=== PATIENT | female | born 1975 | race Caucasian/White ===

== ENCOUNTER → 2016-12-13 | Outpatient (CLI) | payer OTHER ==
--- NOTE | 2016-12-13 10:58 | DI ---
MRI LOW EXTREMITY JNT W/O CN,12/13/2016 9:50 AM: Clinical History: Knee pain Previous Exam: None at this facility. Findings: Multiplanar MR images are obtained through the left knee without contrast. Bony alignment is anatomic. No fractures are seen. There is some thinning of the articular cartilage tricompartmentally without subchondral cyst formati on. There is an oblique tear involving the body of the medial meniscus exiting on the undersurface. The lateral meniscus is intact. The anterior and posterior cruciate ligaments are intact. Medial and lateral collateral ligaments are also intact. There is no evidence of knee joint effusion. The quadriceps and patellar tendons are intact. The major vascular flow voids are unremarkable. There is no evidence of Connolly's cyst. Impression: Oblique tear of the body of the medial meniscus exiting on the undersurface. 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
== END ==
LOC: MRI 09:47
PROVIDERS: ATTEND Orthopaedic Surgery
DX: M25.562 Pain in left knee (principal); S83.242A Other tear of medial meniscus, current injury, left knee, initial encounter; M94.262 Chondromalacia, left knee
CPT/HCPCS: 73721

== ENCOUNTER 2017-12-15 14:25 | Inpatient (IN) ==
[2017-12-15] MEDS ORDERED: MORPHINE SULFATE 2 MG/1 ML IVP ONE (14:34)
[2017-12-15] MEDS ORDERED: Sodium Chloride 0.9% 1,000 ML PRIMARY IV ONE (14:34)
[2017-12-15] MEDS ORDERED: LORazepam 2 MG/1 ML VIAL IVP ONE (14:42)
--- NOTE | 2017-12-15 14:42 | PDOC ---
Abdomen/Flank HPI - General Chief Complaint: Abdomen Pain Stated Complaint: RIGHT SIDE PAIN STARTING SATURDAY NIGHT Date Seen by Provider: 12/15/17 Time Seen by Provider: 14:33 Source: POSITIVE: Patient, Spouse Exam Limitations: POSITIVE: No limitations Nurse's Notes Reviewed & Considered: Yes - History of Present Illness Initial Comments: This is a well-developed, well nourished, obese, very pleasant, 42-year-old female, complaining of right sided abdominal pain and right-sided chest pain. Patient with a sudden onset of right-sided chest pain that's been ongoing for 3 days. Pain has been escalating and radiates from her right chest into her right shoulder and right upper quadrant of her abdomen. She has had nausea and vomiting with 2-3 episodes of emesis. She has shortness of breath and is unable to take a deep breath. Her symptoms are escalating. She denies any headache, no sore throat, no diarrhea, no hematuria or dysuria, no rashes, no myalgias or arthralgias. Body Location Affected: REPORTS: Chest, Abdomen Timing: REPORTS: Abrupt Duration: >24 hours Severity: Severe Quality: REPORTS: "Pain" Abdominal Pain Onset Location: REPORTS: RUQ Abdominal Pain Radiation: REPORTS: RUQ, Shoulder, Chest, Back Context: REPORTS: None Modifying Factors: improves with: Nothing Associated Symptoms: REPORTS: Back pain, Nausea, Vomiting, Other (Shortness of breath) Similar Symptoms Previously: No Recent Care Received: REPORTS: Surgery (Gastric sleeve surgery 2 months ago.) Any Prior Injuries Related to Current Complaint?: No - Patient Home Medications Home Medications: Home Medications Ibuprofen 3 cap PO PRN cap 11/22/16 hydrocodone 7.5 mg-acetaminophen 325 mg tablet 1 tab PO BID PRN #30 tab meloxicam 7.5 mg tablet 7.5 mg PO BID PRN #60 tab 02/22/17 Norgestrel-Ethinyl Estradiol [Elinest-28 Tablet] 1 ea PO DAILY 12/15/17 - Patient Allergies Allergies/Adverse Reactions: Allergies 3 Allergy/AdvReac Type Severity Reaction Status Date / Time No Known Allergies Allergy Verified 12/15/17 14:42 Past Medical History - heen HEENT History: Denies History Cardiovascular History: Denies History Respiratory History: Denies History Gastrointestinal History: Denies History Genitourinary History: Denies History Endocrine History: Denies History Musculoskeletal History: Denies History Prosthesis or Implant: No Neurological History: Denies History Blood Disorders: Denies History Psychiatric History: Denies History History of Sexually Transmitted Diseases: No Cancer History: Denies History History of MDRO: Yes History of Other Communicable Diseases: No Alcohol Use: Occasionally In the Past 12 Months, Have Used or Abuse Any Substance: None Previous Surgical History: Yes Type / Date of Surgery: . cholecystectomy Anesthesia Reactions: No Malignant Hyperthermia: No Significant Family History: No pertinent family hx ROS - Limitations ROS Limitations: No Limitations Constitution: REPORTS: Diaphoresis Cardiovascular: REPORTS: Chest Pain Respiratory: REPORTS: Hurts To Breathe, Shortness Of Breath Neurological: REPORTS: Denies Neuro Symptoms Gastrointestinal: REPORTS: Abdominal Pain, Nausea, Vomitting, Constipation Endocrine: REPORTS: Denies Symptoms Musculoskeletal: REPORTS: Back Pain Genitourinary: REPORTS: Denies Symptoms Eyes: REPORTS: Denies Symptoms ENT: REPORTS: Denies Symptoms Skin: REPORTS: Denies Skin Symptoms Lympathic: REPORTS: Denies Lympathic Symptoms Immunologic: POSITIVE: Denies Symptoms Psychiatric: POSITIVE: Anxiety Abdominal/Flank Pain PE - General Appearance General Appearance: POSITIVE: Alert, Cooperative, No Evidence of Trauma, Severe Distress - HEENT HEENT: POSITIVE: Head Inspection Nml, Eyes Inspection Nml, Ears Inspection Nml, Nose Inspection Nml, Oral/Dental Inspect. Nml, Pharynx Inspect. Nml, PERRL, EOMI - Neck Neck: POSITIVE: Normal Inspection, No Apparent Injury - Respiratory Respiratory: POSITIVE: No Respiratory Distress, Breath Sounds Normal, Other ( Chest is tender to palpation over the right lateral ribs) - Cardiovascular Cardiovascular: POSITIVE: Regular Rate and Rhythm, Heart Sounds Normal, Strong Pulses Peripheral Pulses: Radial (R): 4+ - Chest Chest: POSITIVE: Non Tender - Abdomen Abdomen: Soft: (All Quadrants), Normal Bowel Sounds: (All Quadrants), Denies Tenderness: (LLQ), (RLQ), (LUQ), No Splenomegaly: (All Quadrants), No Hepatomegaly: (All Quadrants), No Guarding: (All Quadrants), No Rebound: (All Quadrants), No Palpable Pulse: (All Quadrants), No Palpabale Mass: (All Quadrants), No Distention: (All Quadrants), No Rigidity: (All Quadrants), Tenderness Noted: (RUQ) - Back Back: POSITIVE: CVA Tenderness (R) - Skin Skin: POSITIVE: Intact, Normal For Race, Warm, Dry, No Rash - Extremities Extremity: Non-Tender: (All Extremities), Normal ROM: (All Extremities), Normal Inspection: (All Extremities), Pelvis Stable: (All Extremities) - Neurological Neurological: POSITIVE: Affect Apporpriate, Oriented X3, Motor Normal, Sensation Normal - Psychological Psychiatric: POSITIVE: Mood Appropriate, Anxious Abdomen Progress - Results Reviewed by me Xrays/CTs/US Reviewed by me: Yes Discussed with Radiologist: Yes Lab Results Reviewed by Me: Yes CBC and BMP: 12/15/17 14:50 12/15/17 14:50 EKG Interpreted/Reviewed By Me:: Yes (sinus rhythm without evidence of ST-T changes) EKG Interpretation:: POSITIVE: Normal Sinus Rhythm, Normal Rate, Normal Intervals, Normal [place], Normal QRS, Normal ST/T - Patient's Progress Pain Medication Addressed: POSITIVE: Yes Re-examine Time: 17:09 Status: POSITIVE: Improved - Consult Consult (If Yes, Name of Consulting MD & Time Called): Yes (Dr. Viera 1710hrs.) Consulting MD will see pt:: POSITIVE: [facility] [place] Admit Counseled: POSITIVE: Patient, Family, RE: Lab Results, RE: Radiology Results, RE : DX, RE: Need for F/U - CP/AMI Quality Measure Initiative: CP/AMI: POSITIVE: EKG Patient Care Time - Estimated PCT Patient Care Time (In Minutes): 45 Vital Signs - VS Reviewed Vital Signs Reviewed: Yes Discharge Clinical Impression: Pneumonia Discharge Disposition: Admit to Inpatient Condition: Stable Patient Instructions Given at Discharge: Pneumonia (ED) Follow Up With: NONE,NONE [NON-STAFF] - Date Decision to Admit to Inpatient: 12/15/17 Time Decision to Admit to Inpatient: 17:18
--- NOTE | 2017-12-15 14:47 | EKG ---
[address] [address] Measurements Intervals [place] Rate: 77 P: 64 VA: 153 QRS: 59 QRSD: 99 T: 34 QT: 373 QTc: 404 Interpretive Statements SINUS RHYTHM No previous ECG available for comparison Electronically Signed On 12-16-17 08:22:41 MDT by Dwight Munson MD [email or web address]
[2017-12-15 15:03] LABS: BASOPHILS # (AUTO) 0.03 10*3/UL; BASOPHILS % (AUTO) 0.3 % (0-1); EOSINOPHILS % (AUTO) 0.9 % (0-8); Hematocrit [HCT] 41.2 % (37.0-47.0); LYMPHOCYTES # (AUTO) 2.65 10*3/uL; MEAN CORPUSCULAR HEMOGLOBIN 29.4 PG (27-31); MEAN CORPUSCULAR VOLUME 86.4 FL (81-99); MEAN PLATELET VOLUME 10.6 FL (7.4-12.2); MONOCYTES % (AUTO) 8.1 % (5-15); NEUTROPHILS # (AUTO) 7.48 10*3/UL; NEUTROPHILS % (AUTO) 66.8 % (50-80); PLATELET MORPHOLOGY COMMENT NORMAL MORPHOLOGY (NORM); RBC MORPHOLOGY COMMENT NORMAL MORPHOLOGY (NORM); RED BLOOD COUNT 4.77 10^6/uL (4.20-5.40); WBC MORPHOLOGY COMMENT NORMAL MORPHOLOGY (NORM)
[2017-12-15 15:18] LABS: BLOOD UREA NITROGEN 10 mg/dL (7-22); BUN/CREATININE RATIO 16.66 (6-20)
[2017-12-15] MEDS ORDERED: MORPHINE SULFATE 4 MG/1 ML IVP ONE (16:41)
--- NOTE | 2017-12-15 17:01 | DI ---
EXAM: CT Angiography Chest With Intravenous Contrast CLINICAL HISTORY: ITS.REASON cp/sob Physician Notes: Tech Comments: TECHNIQUE: Axial computed tomographic angiography images of the chest with intravenous contrast using pulmonary embolism protocol. MIP reconstructed images were created and reviewed. COMPARISON: No relevant prior studies available. FINDINGS: Exam is limited due to obese habitus causing excessive image noise. There is no dissection or other acute aortic syndrome. There is no visualized pulmonary embolism. There is extensive collapse of the right lower lobe with a component of consolidation as well. Suspicion for pneumonia. Recommend clinical correlation. There is an adjacent small pleural effusion. This is dependent without clear loculated component to indicate empyema. There is mild volume loss at the left base. IMPRESSION: Right lower lobe consolidation and atelectasis. Suspect pneumonia. Small right pleural effusion. No clear PE on technically limited exam.
[2017-12-15] MEDS ORDERED: cefTRIAXone Inj 2 GM in Sodium Chloride 0.9% 100 ML IV ONE (17:03)
--- NOTE | 2017-12-15 17:05 | DI ---
EXAM: CT Abdomen and Pelvis With Intravenous Contrast CLINICAL HISTORY: ITS.REASON RUQ pain Physician Notes: Tech Comments: TECHNIQUE: Axial computed tomography images of the abdomen and pelvis with intravenous contrast. COMPARISON: No relevant prior studies available. FINDINGS: Technically limited due to obese habitus. Status post cholecystectomy. No biliary dilation. Hepatomegaly. No liver mass is identified. There is a 2 mm calculus to the lower pole of the left kidney. No ureteral stone or hydronephrosis. Patient is status post gastric sleeve procedure. No perforation. Scattered small bowel air-fluid levels could reflect mild ileus or enteritis. No discrete transition point to indicate mechanical obstruction. Unremarkable appendix. No abdominal aortic aneurysm. Grossly unremarkable pelvic organs. Tiny fatty umbilical hernia. L5 spondylolysis with grade 1 anterolisthesis. No acute fracture. IMPRESSION: Gastric sleeve. No perforation. Scattered small bowel air-fluid levels could reflect mild ileus or enteritis. Cholecystectomy. No biliary dilation. Nonobstructing left renal calculus. L5 spondylolysis with grade 1 anterolisthesis.
[2017-12-15] MEDS ORDERED: ENOXAPARIN SODIUM 100 MG/1 ML SYRINGE SUBCUT ONE (17:14)
[2017-12-15] MEDS ORDERED: Sodium Chloride 0.9% 250 ML IV ONE (17:23)
[2017-12-15] MEDS ORDERED: LIDOCAINE W/ SODIUM BICARB 0.5 ML SYR SUBD PRN (18:15)
[2017-12-15] MEDS ORDERED: HYDROcodone-APAP 7.5 MG-325 MG TABLET PO PRN (18:15)
[2017-12-15] MEDS ORDERED: ALBUTEROL SULFATE 2.5 MG/3 ML NEB PRN (18:15)
[2017-12-15] MEDS ORDERED: ONDANSETRON 4 MG/2 ML VIAL IVP PRN (18:15)
[2017-12-15 19:14] LABS: BACTERIA,URINE MANY; BILIRUBIN,URINE SMALL (NEG); CLARITY,URINE Slightly Cloudy (CLEAR); COLOR,URINE ORANGE (Y); GLUCOSE, URINE (UA) NEGATIVE (NEG); OCCULT BLOOD,URINE Trace-intact (NEG); PH,URINE 5.5 (5.0-8.5); PROTEIN,URINE NEGATIVE (NEG); SQUAMOUS EPITHELIAL CELL,UR RARE; URINE SAMPLE TYPE CLEAN CATCH URINE
[2017-12-15] MEDS: MORPHINE SULFATE 2 MG/1 ML IVP PRN (20:13)
--- NOTE | 2017-12-15 21:08 | PDOC ---
HPI - History of Present Illness History of Present Illness: This very nice 42-year-old female status post a gastric sleeve for the last 2 or 3 days, been complaining of right sided flank pain she had some few Percocets left over from her gastric surgery she had to take one to sleep the other night and decided to come to the ER after the pain continued to get worse in the ER she was found to have a right lower lobe pneumonia on CT scan also had some shortness of breath and not able take deep breaths on CT scan it was not clear if she had a PE or not she did have an elevated d-dimer she did receive a dose of Lovenox and tomorrow we will review her CT scan with the radiologist closer she feels much better now after the antibiotics and IV fluids and pain meds Past Medical History Medical History: Morbid obesity Surgical History: Gastric sleeve Tobacco Use: Former Smoker In the Past 12 Months, Have Used or Abuse Any of the Following Substance: None Medication / Allergies Home Medications: Home Medications 3 Medication Instructions Recorded Confirmed Type Ibuprofen 3 cap PO PRN cap 11/22/16 12/15/17 History hydrocodone 7.5 mg-acetaminophen 1 tab PO BID PRN #30 tab 01/25/17 12/15/17 Rx 325 mg tablet meloxicam 7.5 mg tablet 7.5 mg PO BID PRN #60 tab 02/22/17 Rx Norgestrel-Ethinyl Estradiol 1 ea PO DAILY 12/15/17 12/15/17 History [Elinest-28 Tablet] Allergies/Adverse Reactions: Allergies 3 Allergy/AdvReac Type Severity Reaction Status Date / Time No Known Allergies Allergy Verified 12/15/17 14:42 Review of Systems - Review of Systems All Systems: Reviewed & No Additional Complaints Except as Stated - Respiratory Respiratory: REPORTS: Cough, Pleuritic Pain. DENIES: Hemoptysis, Wheezing - Cardiovascular Cardiovascular: DENIES: Negative System Review, Chest Pain, Edema, Syncope, Palpitations, Orthopnea, Paroxysmal Nocturnal Dyspnea, Other, See HPI - Gastrointestinal Gastrointestinal / Abdominal: DENIES: Negative System Review, Nausea, Vomiting, Diarrhea, Constipation, Abdominal Pain, Bloody Stool, Poor Appetite, Heartburn, Regurgitation, Bloating, Lactose Intolerance, Melena, Bright Red Blood per Rectum, Other, See HPI Exam - Vitals Vital Signs: Vital Signs Temperature 98.1 F Temperature Source Temporal Artery Scan Pulse Rate [Pulse Oximeter] 82 Pulse Rate 80 Respiratory Rate 22 Blood Pressure [Left Arm] 155/82 Blood Pressure 144/67 Pulse Ox 94 Oxygen Delivery Method Room Air Height 5 ft 7 in Weight 348 lb 9.6 oz - General General Appearance: No Acute Distress, Cooperative - Eye Eye Exam: POSITIVE: Normal Appearance, PERRL, EOMI, No Scleral Icterus - Respiratory Respiratory Exam: POSITIVE: Decreased Breath Sounds. NEGATIVE: Rales, Rhonci, Crackles - Cardiovascular Cardiovascular Exam: POSITIVE: RRR, No Murmur, No Clicks, No Gallops, No Rubs, PMI Non-Displaced - GI/Abdominal GI/Abdominal Exam: POSITIVE: Normal Bowel Sounds, Non Tender, Non Distended, Soft, No Masses, No Hepatomegaly, No Splenomegaly, No Organomegaly - Rectal Rectal Exam: POSITIVE: Deferred - External Exam: POSITIVE: Deferred Exam: POSITIVE: Deferred - Extremities Extremities Exam: POSITIVE: No Clubbing Present, No Edema Present, No Cyanosis Present - Neurological Neurological Exam: POSITIVE: Alert, Oriented x 3, Reflexes Normal, Normal Gait, CN II-XII Intact, No Facial Droop, Speech Intact / Clear, Moves All Extremities Equally, No Fasciculations, No Clonus Results - Labs CBC and BMP: 12/15/17 14:50 12/15/17 14:50 Assessment and Plan - Patient Problems (1) Pneumonia Current Visit: Yes Status: Acute Comment: Continue Rocephin 2 g IV Zithromax 500 labs for legionnaire's disease are pending as a and pneumococcal antigen as well patient already feels better continue IV fluid oxygen reviewed CT with radiologist in a.m. patient received Lovenox in the ER Code(s): J18.9 - Pneumonia, unspecified organism Qualifiers: Pneumonia type: due to unspecified organism Laterality: right Lung location: lower lobe of lung Qualified Code(s): J18.1 - Lobar pneumonia, unspecified organism
[2017-12-16] MEDS: MORPHINE SULFATE 2 MG/1 ML IVP PRN ×2 (01:17→05:40)
[2017-12-16 03:55] VITALS: RESP 20
[2017-12-16 05:02] LABS: BASOPHILS # (AUTO) 0.05 10*3/UL; BASOPHILS % (AUTO) 0.5 % (0-1); EOSINOPHILS # (AUTO) 0.11 10*3/UL; EOSINOPHILS % (AUTO) 1.1 % (0-8); Hematocrit [HCT] 37.2 % (37.0-47.0); Hemoglobin [HGB] 12.9 g/dL (12.0-16.0); LYMPHOCYTES # (AUTO) 2.07 10*3/uL; MEAN CORPUSCULAR HEMOGLOBIN 30.1 PG (27-31); MEAN CORPUSCULAR HGB CONC 34.7 g/dL (33-37); MEAN CORPUSCULAR VOLUME 86.9 FL (81-99); MEAN PLATELET VOLUME 11.8 FL (7.4-12.2); MONOCYTES # (AUTO) 0.97 10*3/UL (0.3-0.8); NEUTROPHILS # (AUTO) 6.47 10*3/UL; NEUTROPHILS % (AUTO) 66.8 % (50-80); RED BLOOD COUNT 4.28 10^6/uL (4.20-5.40)
[2017-12-16 05:05] LABS: PLATELET MORPHOLOGY COMMENT NORMAL MORPHOLOGY (NORM); RBC MORPHOLOGY COMMENT NORMAL MORPHOLOGY (NORM); WBC MORPHOLOGY COMMENT NORMAL MORPHOLOGY (NORM)
[2017-12-16 05:15] LABS: BLOOD UREA NITROGEN 8 mg/dL (7-22); SERUM ALBUMIN 3.5 g/dL (3.5-4.8)
[2017-12-16 07:03] VITALS: BP 154/75; TEMP 97.3; O2SAT 93
[2017-12-16] MEDS ORDERED: FUROSEMIDE 10 MG/1 ML - 4 ML IVP ONE (07:23)
--- NOTE | 2017-12-16 07:48 | DCSUMMARY ---
Hospitalization Summary Hospital Course: Final Discharge Diagnosis: Current Visit Problems Problem Status Onset Code Pneumonia Acute J18.9 Diagnostic Data, Laboratory Data, and Procedures of Signifigance: Abnormal Lab Results (Last 24 Hours) Range/Units 12/15/17 12/15/17 12/15/17 14:50 14:50 14:50 WBC (4.8-10.8) 10^3/uL 11.18 H [place] # (Auto) (0.3-0.8) 10*3/UL 0.90 H D-Dimer (0.00-0.59) mg/L 2.10 H Potassium (3.8-5.2) meq/L 3.6 L Carbon Dioxide (23-33) meq/L Calcium (8.7-10.7) mg/dL Total Bilirubin (0.3-1.2) mg/dL 1.3 H C-Reactive Protein (0.0-0.9) mg/dL 15.6 H Albumin/Globulin Ratio (1.3-2.0) mg/g 1.10 L Urine Color (Y) Urine Occult Blood (NEG) Urine Nitrate (NEG) Urine Bacteria (NONE) Range/Units 12/15/17 12/16/17 12/16/17 19:06 04:00 04:00 WBC (4.8-10.8) 10^3/uL [place] # (Auto) (0.3-0.8) 10*3/UL 0.97 H D-Dimer (0.00-0.59) mg/L Potassium (3.8-5.2) meq/L 3.6 L Carbon Dioxide (23-33) meq/L 21 L Calcium (8.7-10.7) mg/dL 8.3 L Total Bilirubin (0.3-1.2) mg/dL C-Reactive Protein (0.0-0.9) mg/dL Albumin/Globulin Ratio (1.3-2.0) mg/g Urine Color (Y) [place] A Urine Occult Blood (NEG) Trace-intact H Urine Nitrate (NEG) Positive A Urine Bacteria (NONE) Many H Laboratory Results 12/15/17 12/15/17 12/15/17 Range/Units 14:50 14:50 14:50 WBC 11.18 H (4.8-10.8) 10^3/uL RBC 4.77 (4.20-5.40) 10^6/uL Hgb 14.0 (12.0-16.0) g/dL Hct 41.2 (37.0-47.0) % MCV 86.4 (81-99) FL MCH 29.4 (27-31) PG MCHC 34.0 (33-37) g/dL RDW Std Deviation 42.0 (39-50) fL RDW Coeff of Gurjit 13.5 (11.5-14.5) % Plt Count 232 (140-350) 10*3/uL MPV 10.6 (7.4-12.2) FL Immature Gran % (Auto) 0.2 (0-5) % Neut % (Auto) 66.8 (50-80) % Lymph % (Auto) 23.7 (10-50) % [place] % (Auto) 8.1 (5-15) % Eos % (Auto) 0.9 (0-8) % Baso % (Auto) 0.3 (0-1) % Immature Gran # (Auto) 0.02 10*3/UL Neut # (Auto) 7.48 10*3/UL Lymph # (Auto) 2.65 10*3/uL [place] # (Auto) 0.90 H (0.3-0.8) 10*3/UL Eos # (Auto) 0.10 10*3/UL Baso # (Auto) 0.03 10*3/UL WBC Morphology Comment Normal morphology (NORM) Plt Morphology Comment Normal morphology (NORM) RBC Morph Comment Normal morphology (NORM) PT (9.7-11.4) secs INR (0.00-5.90) N/A D-Dimer 2.10 H (0.00-0.59) mg/L Sodium 142 (135-145) meq/L Potassium 3.6 L (3.8-5.2) meq/L Chloride 107 (98-112) meq/L Carbon Dioxide 25 (23-33) meq/L Anion Gap 10 (5-20) BUN 10 (7-22) mg/dL Creatinine 0.6 (0.50-1.20) mg/dL Estimated GFR > 60 (>60 ml/min/1.73m(2)) BUN/Creatinine Ratio 16.66 (6-20) Glucose 91 (78-110) mg/dL Calculated Osmolality 292.0 (267-292) mOsm/kg Calcium 9.2 (8.7-10.7) mg/dL Phosphorus (2.4-4.3) mg/dl Magnesium 2.0 (1.6-2.4) mg/dL Total Bilirubin 1.3 H (0.3-1.2) mg/dL AST 27 (8-39) IU/L ALT 46 (9-52) IU/L Alkaline Phosphatase 114 (38-126) IU/L CK-MB (CK-2) (0.00-5.00) NG/ML Troponin I Handheld (< 0.040) ng/mL C-Reactive Protein 15.6 H (0.0-0.9) mg/dL Total Protein 7.6 (6.1-8.0) g/dL Albumin 4.0 (3.5-4.8) g/dL Globulin 3.6 (2.50-4.10) g/dL Albumin/Globulin Ratio 1.10 L (1.3-2.0) mg/g Ur Collection Type Urine Color (Y) Urine Clarity (CLEAR) Urine pH (5.0-8.5) Ur Specific [place] (1.005-1.030) Urine Protein (NEG) mg/dl Urine Glucose (UA) (NEG) mg/dL Urine Ketones (NEG) Urine Occult Blood (NEG) Urine Nitrate (NEG) Urine Bilirubin (NEG) Urine Urobilinogen (0.2) EU/dL Ur Leukocyte Esterase (NEG) Urine RBC (NONE) /hpf Urine WBC (NONE) Ur Squamous Epith Cells (NONE) Ur Renal Epithelial Cell (NONE) Urine Crystals Urine Bacteria (NONE) Urine Casts (NONE) Urine Mucus (NONE) Urine Trichomonas (NONE) Urine Yeast (NONE) Ur Culture Indicated? Ur Strep pneumoniae Ag 12/15/17 12/15/17 12/15/17 Range/Units 14:50 14:50 16:00 WBC (4.8-10.8) 10^3/uL RBC (4.20-5.40) 10^6/uL Hgb (12.0-16.0) g/dL Hct (37.0-47.0) % MCV (81-99) FL MCH (27-31) PG MCHC (33-37) g/dL RDW Std Deviation (39-50) fL RDW Coeff of Gurjit (11.5-14.5) % Plt Count (140-350) 10*3/uL MPV (7.4-12.2) FL Immature Gran % (Auto) (0-5) % Neut % (Auto) (50-80) % Lymph % (Auto) (10-50) % [place] % (Auto) (5-15) % Eos % (Auto) (0-8) % Baso % (Auto) (0-1) % Immature Gran # (Auto) 10*3/UL Neut # (Auto) 10*3/UL Lymph # (Auto) 10*3/uL [place] # (Auto) (0.3-0.8) 10*3/UL Eos # (Auto) 10*3/UL Baso # (Auto) 10*3/UL WBC Morphology Comment (NORM) Plt Morphology Comment (NORM) RBC Morph Comment (NORM) PT 11.0 (9.7-11.4) secs INR 1.07 (0.00-5.90) N/A D-Dimer (0.00-0.59) mg/L Sodium (135-145) meq/L Potassium (3.8-5.2) meq/L Chloride (98-112) meq/L Carbon Dioxide (23-33) meq/L Anion Gap (5-20) BUN (7-22) mg/dL Creatinine (0.50-1.20) mg/dL Estimated GFR (>60 ml/min/1.73m(2)) BUN/Creatinine Ratio (6-20) Glucose (78-110) mg/dL Calculated Osmolality (267-292) mOsm/kg Calcium (8.7-10.7) mg/dL Phosphorus (2.4-4.3) mg/dl Magnesium (1.6-2.4) mg/dL Total Bilirubin (0.3-1.2) mg/dL AST (8-39) IU/L ALT (9-52) IU/L Alkaline Phosphatase (38-126) IU/L CK-MB (CK-2) < 0.22 (0.00-5.00) NG/ML Troponin I Handheld 0.000 (< 0.040) ng/mL C-Reactive Protein (0.0-0.9) mg/dL Total Protein (6.1-8.0) g/dL Albumin (3.5-4.8) g/dL Globulin (2.50-4.10) g/dL Albumin/Globulin Ratio (1.3-2.0) mg/g Ur Collection Type Urine Color (Y) Urine Clarity (CLEAR) Urine pH (5.0-8.5) Ur Specific [place] (1.005-1.030) Urine Protein (NEG) mg/dl Urine Glucose (UA) (NEG) mg/dL Urine Ketones (NEG) Urine Occult Blood (NEG) Urine Nitrate (NEG) Urine Bilirubin (NEG) Urine Urobilinogen (0.2) EU/dL Ur Leukocyte Esterase (NEG) Urine RBC (NONE) /hpf Urine WBC (NONE) Ur Squamous Epith Cells (NONE) Ur Renal Epithelial Cell (NONE) Urine Crystals Urine Bacteria (NONE) Urine Casts (NONE) Urine Mucus (NONE) Urine Trichomonas (NONE) Urine Yeast (NONE) Ur Culture Indicated? Ur Strep pneumoniae Ag 12/15/17 12/15/17 12/16/17 Range/Units 18:15 19:06 04:00 WBC 9.70 (4.8-10.8) 10^3/uL RBC 4.28 (4.20-5.40) 10^6/uL Hgb 12.9 (12.0-16.0) g/dL Hct 37.2 (37.0-47.0) % MCV 86.9 (81-99) FL MCH 30.1 (27-31) PG MCHC 34.7 (33-37) g/dL RDW Std Deviation 40.9 (39-50) fL RDW Coeff of Gurjit 13.3 (11.5-14.5) % Plt Count 203 (140-350) 10*3/uL MPV 11.8 (7.4-12.2) FL Immature Gran % (Auto) 0.3 (0-5) % Neut % (Auto) 66.8 (50-80) % Lymph % (Auto) 21.3 (10-50) % [place] % (Auto) 10.0 (5-15) % Eos % (Auto) 1.1 (0-8) % Baso % (Auto) 0.5 (0-1) % Immature Gran # (Auto) 0.03 10*3/UL Neut # (Auto) 6.47 10*3/UL Lymph # (Auto) 2.07 10*3/uL [place] # (Auto) 0.97 H (0.3-0.8) 10*3/UL Eos # (Auto) 0.11 10*3/UL Baso # (Auto) 0.05 10*3/UL WBC Morphology Comment Normal morphology (NORM) Plt Morphology Comment Normal morphology (NORM) RBC Morph Comment Normal morphology (NORM) PT (9.7-11.4) secs INR (0.00-5.90) N/A D-Dimer (0.00-0.59) mg/L Sodium (135-145) meq/L Potassium (3.8-5.2) meq/L Chloride (98-112) meq/L Carbon Dioxide (23-33) meq/L Anion Gap (5-20) BUN (7-22) mg/dL Creatinine (0.50-1.20) mg/dL Estimated GFR (>60 ml/min/1.73m(2)) BUN/Creatinine Ratio (6-20) Glucose (78-110) mg/dL Calculated Osmolality (267-292) mOsm/kg Calcium (8.7-10.7) mg/dL Phosphorus (2.4-4.3) mg/dl Magnesium (1.6-2.4) mg/dL Total Bilirubin (0.3-1.2) mg/dL AST (8-39) IU/L ALT (9-52) IU/L Alkaline Phosphatase (38-126) IU/L CK-MB (CK-2) (0.00-5.00) NG/ML Troponin I Handheld (< 0.040) ng/mL C-Reactive Protein (0.0-0.9) mg/dL Total Protein (6.1-8.0) g/dL Albumin (3.5-4.8) g/dL Globulin (2.50-4.10) g/dL Albumin/Globulin Ratio (1.3-2.0) mg/g Ur Collection Type Clean catch urine Urine Color [place] A (Y) Urine Clarity Slightly cloudy (CLEAR) Urine pH 5.5 (5.0-8.5) Ur Specific [place] 1.010 (1.005-1.030) Urine Protein Negative (NEG) mg/dl Urine Glucose (UA) Negative (NEG) mg/dL Urine Ketones 40 (NEG) Urine Occult Blood Trace-intact H (NEG) Urine Nitrate Positive A (NEG) Urine Bilirubin Small (NEG) Urine Urobilinogen 1.0 (0.2) EU/dL Ur Leukocyte Esterase Negative (NEG) Urine RBC None (NONE) /hpf Urine WBC 10-15 (NONE) Ur Squamous Epith Cells Rare (NONE) Ur Renal Epithelial Cell None (NONE) Urine Crystals None Urine Bacteria Many H (NONE) Urine Casts None (NONE) Urine Mucus None (NONE) Urine Trichomonas None (NONE) Urine Yeast None (NONE) Ur Culture Indicated? Culture set Ur Strep pneumoniae Ag Negative 12/16/17 Range/Units 04:00 WBC (4.8-10.8) 10^3/uL RBC (4.20-5.40) 10^6/uL Hgb (12.0-16.0) g/dL Hct (37.0-47.0) % MCV (81-99) FL MCH (27-31) PG MCHC (33-37) g/dL RDW Std Deviation (39-50) fL RDW Coeff of Gurjit (11.5-14.5) % Plt Count (140-350) 10*3/uL MPV (7.4-12.2) FL Immature Gran % (Auto) (0-5) % Neut % (Auto) (50-80) % Lymph % (Auto) (10-50) % [place] % (Auto) (5-15) % Eos % (Auto) (0-8) % Baso % (Auto) (0-1) % Immature Gran # (Auto) 10*3/UL Neut # (Auto) 10*3/UL Lymph # (Auto) 10*3/uL [place] # (Auto) (0.3-0.8) 10*3/UL Eos # (Auto) 10*3/UL Baso # (Auto) 10*3/UL WBC Morphology Comment (NORM) Plt Morphology Comment (NORM) RBC Morph Comment (NORM) PT (9.7-11.4) secs INR (0.00-5.90) N/A D-Dimer (0.00-0.59) mg/L Sodium 139 (135-145) meq/L Potassium 3.6 L (3.8-5.2) meq/L Chloride 110 (98-112) meq/L Carbon Dioxide 21 L (23-33) meq/L Anion Gap 8 (5-20) BUN 8 (7-22) mg/dL Creatinine 0.5 (0.50-1.20) mg/dL Estimated GFR > 60 (>60 ml/min/1.73m(2)) BUN/Creatinine Ratio 16.00 (6-20) Glucose 92 (78-110) mg/dL Calculated Osmolality 285.0 (267-292) mOsm/kg Calcium 8.3 L (8.7-10.7) mg/dL Phosphorus 3.5 (2.4-4.3) mg/dl Magnesium (1.6-2.4) mg/dL Total Bilirubin (0.3-1.2) mg/dL AST (8-39) IU/L ALT (9-52) IU/L Alkaline Phosphatase (38-126) IU/L CK-MB (CK-2) (0.00-5.00) NG/ML Troponin I Handheld (< 0.040) ng/mL C-Reactive Protein (0.0-0.9) mg/dL Total Protein (6.1-8.0) g/dL Albumin 3.5 (3.5-4.8) g/dL Globulin (2.50-4.10) g/dL Albumin/Globulin Ratio (1.3-2.0) mg/g Ur Collection Type Urine Color (Y) Urine Clarity (CLEAR) Urine pH (5.0-8.5) Ur Specific [place] (1.005-1.030) Urine Protein (NEG) mg/dl Urine Glucose (UA) (NEG) mg/dL Urine Ketones (NEG) Urine Occult Blood (NEG) Urine Nitrate (NEG) Urine Bilirubin (NEG) Urine Urobilinogen (0.2) EU/dL Ur Leukocyte Esterase (NEG) Urine RBC (NONE) /hpf Urine WBC (NONE) Ur Squamous Epith Cells (NONE) Ur Renal Epithelial Cell (NONE) Urine Crystals Urine Bacteria (NONE) Urine Casts (NONE) Urine Mucus (NONE) Urine Trichomonas (NONE) Urine Yeast (NONE) Ur Culture Indicated? Ur Strep pneumoniae Ag History and Physical pertinent to Admission: Course of Hospitalization: This very nice 42-year-old female past medical history for gastric sleeve, and sleep apnea on CPAP machine at home is admitted to the hospital for right lower lobe pneumonia patient was given the IV antibiotics she improved dramatically overnight and the back to her normal self vital signs are stable no oxygen requirements no left shift no white count patient will really like to be going home I believe if she can be discharged home we will finish her course with 4 more days of Levaquin 750 by mouth she will follow-up with her primary care physician. Also she was given the potassium replacement as well and was hydrated overnight with normal saline and potassium. Patient is not splinting anymore and is able to take deep breaths I did speak with Dr. townsend the radiologist in person which reviewed also the CT scan of the chest he did not call any pulmonary embolus no signs of PE ,we will continue with the pneumonia diagnosis patient responded to treatment. She is 93-94% on room air and on walking around she still maintained her sats above 90% with no pain. She is back to her normal self and that would like to be discharged home On the date of discharge, the patient was examined: Gen.: No acute distress, alert, nontoxic Heart: Regular rate and rhythm, no murmurs, clicks, gallops, or rubs Lungs: Clear to auscultation bilaterally, breathing is nonlabored Abdomen/GI: Normal tones on auscultation, soft, nontender, nondistended Musculoskeletal/extremities: No clubbing, cyanosis, or edema Vitals reviewed and are listed below Vital Signs (24 hrs) Temp Pulse Pulse Resp BP BP BP 12/16/17 07:02 97.3 F 80 20 154/75 12/16/17 07:00 16 12/16/17 05:31 12/16/17 03:54 98.5 F 87 20 157/83 12/16/17 03:00 87 12/15/17 23:36 97.9 F 87 22 138/71 12/15/17 23:00 88 12/15/17 19:01 98.1 F 82 22 155/82 12/15/17 19:00 100 12/15/17 18:23 82 22 12/15/17 16:15 97.8 F 80 16 144/67 12/15/17 14:51 77 12/15/17 14:25 98.0 F 82 14 128/99 Pulse Ox 12/16/17 07:02 93 12/16/17 07:00 93 12/16/17 05:31 91 12/16/17 03:54 93 12/16/17 03:00 93 12/15/17 23:36 92 12/15/17 23:00 93 12/15/17 19:01 94 12/15/17 19:00 98 12/15/17 18:23 12/15/17 16:15 94 12/15/17 14:51 12/15/17 14:25 94 Assessment and Plan: 1. As per discharge assessments above 2. Disposition: Home 3. Condition on discharge, stable and improved. 4. Diet: regular diet 5. Activities: resume normal activities 6. Follow-Up: 1. PCP in 3-5 days she already has an appointment 2. 7. Medications at the Time of Discharge: Home Medications 3 Medication Instructions Recorded Confirmed Type meloxicam 7.5 mg tablet 7.5 mg PO BID PRN #60 tab 02/22/17 Rx Norgestrel-Ethinyl Estradiol 1 ea PO DAILY 12/15/17 12/15/17 History [Elinest-28 Tablet] Levofloxacin [Levaquin] 750 mg PO DAILY #4 tab 12/16/17 Rx 8. Time, care, counseling and coordination of care for this discharge is greater than 30 minutes. Exam - Vitals Vital Signs: Vital Signs Temperature 97.3 F Temperature Source Temporal Artery Scan Pulse Rate [Pulse Oximeter] 80 Pulse Rate 87 Respiratory Rate 20 Blood Pressure [Right Arm] 154/75 Blood Pressure [Left Arm] 157/83 Blood Pressure 144/67 Pulse Ox 93 Oxygen Delivery Method Room Air Height 5 ft 7 in Weight 350 lb Patient Problems - Patient Problem List (1) Pneumonia Current Visit: Yes Status: Acute Code(s): J18.9 - Pneumonia, unspecified organism Qualifiers: Pneumonia type: due to unspecified organism Laterality: right Lung location: lower lobe of lung Qualified Code(s): J18.1 - Lobar pneumonia, unspecified organism Category: Medical
[2017-12-16] MEDS: POTASSIUM CHLORIDE 20 MEQ TAB PO SCH ×2 (08:30→08:38)
[2017-12-16] MEDS ORDERED: NORGESTREL ETHINYL ESTRADIOL PO SCH (09:00)
[2017-12-16] MEDS ORDERED: ASCORBIC ACID Chewable 500 MG TABLET PO SCH (09:00)
[2017-12-16] MEDS ORDERED: cefTRIAXone Inj 2 GM in Sodium Chloride 0.9% 100 ML IV SCH (17:00)
== END 2017-12-16 10:33 | disposition home or self-care (01) | DRG 195 ==
LOC: ER 14:25 → MED/SURG 16:15 → UNDODISIN 12-16 10:33
PROVIDERS: ADMIT Internal Medicine; ATTEND Internal Medicine